=== PATIENT | male | born 1995 | race Caucasian/White ===

== ENCOUNTER 2017-09-04 19:25 | Emergency (ER) | payer MEDICAID ==
[~2017-09-04] VITALS: Ht 180.3 cm; Wt 118.8 kg
[2017-09-04 20:05] VITALS: Ht 180.3 cm; Wt 118.8 kg
[2017-09-04 22:10] LABS: BASOPHIL % 0.3 % (0-2); PLATELET COUNT 332 x10^3mcL (130-400); RED CELL DISTRIBUTION WIDTH 12.8 % (11.5-14.5)
[2017-09-04 22:12] LABS: CALCIUM 9.6 mg/dL (8.5-10.1); CHLORIDE SERUM 98 mmol/L (98-107); GFR1 > 60 mL/min; GLUCOSE SERUM 103 mg/dL (74-106); POTASSIUM SERUM 3.2 mmol/L (3.5-5.1); SODIUM SERUM 136 mmol/L (136-145)
[2017-09-04 22:16] LABS: ALBUMIN 5.1 g/dL (3.4-5.0); ALKALINE PHOSPHATASE 63 U/L (46-116); ALT/SGPT 60 U/L (16-63); AST/SGOT 25 U/L (15-37); BILIRUBIN TOTAL 0.9 mg/dL (0.20-1.00); MAGNESIUM 2.2 mg/dL (1.8-2.4); PHOSPHOROUS 3.9 mg/dL (2.5-4.9); TOTAL PROTEIN, SERUM 8.8 g/dL (6.4-8.2)
[2017-09-05 00:03] LABS: AMPHETAMINE QUAL UR POSITIVE (NEG <=1000)
[2017-09-05 01:27] VITALS: BP 140/68
== END 2017-09-05 01:28 | disposition home or self-care (01) ==
LOC: ED 19:25
PROVIDERS: Emergency Medicine
DX: F15.10 Other stimulant abuse, uncomplicated (principal)
CPT/HCPCS: 36415; J2060; Q0162